=== PATIENT | male | born 1980 | race Caucasian/White ===

== ENCOUNTER → 2022-06-11 | Outpatient (CLI) | payer BC, SELFPAY ==
--- NOTE | 2022-06-11 16:33 | CT_ITS ---
ACR Level 3 findings have been noted. An addendum which confirms receipt of the report will follow. INDICATION: LUQ mass -- Oral and IV contrast EXAMINATION: CT Abdomen And Pelvis W/ Contrast Injection TECHNIQUE: Helically acquired images were obtained of the abdomen and pelvis after IV contrast. A radiation dose optimization technique was used for this scan. IV Contrast dosage and agent: Oral and amp; IV Readi-CAT and amp; 100mL Isovue-370 Oral contrast: None. COMPARISON: None. FINDINGS: Visualized lung bases: Unremarkable Liver: Unremarkable Gallbladder: Unremarkable Spleen: Unremarkable Pancreas: Unremarkable Adrenal Glands: 1.8 cm intermediate density nodule in the left adrenal gland measures 76 Hounsfield units on portal venous phase. Kidneys: There is a large well-circumscribed enhancing mass in the left lower renal pole with a nonenhancing low-attenuation central stellate scar. It measures approximately 11.4 x 10.9 x 11 cm. No gross invasion of the left renal vein or perirenal fat. No lymphadenopathy. Vasculature: Unremarkable GI Tract: Unremarkable Lymphadenopathy: None Peritoneum: No ascites. Bladder: Unremarkable Reproductive organs: Unremarkable Bones/Soft tissues: No suspicious osseous or soft tissue lesions CT/Abdomen/Pelvis WITH Contrast IMPRESSION: Large 11 cm well-demarcated mass in the left lower renal pole with a central hypoattenuating scar and no gross invasion of vasculature, fat or lymph nodes. 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 However, cannot rule out renal cell carcinoma as it can have oncocytic elements. 1.8 cm intermediate density nodule in the left adrenal gland is indeterminate. Recommend follow-up noncontrast CT abdomen to assess for enhancement. Electronically Signed: Garrett Reyna MD at 17:38 EST ,
== END | disposition home or self-care (01) ==
LOC: CT 16:32
PROVIDERS: PCP Nurse Practitioner Family; Referring Provider Surgery; Visit Provider Surgery
DX: R19.02 Left upper quadrant abdominal swelling, mass and lump (principal)
CPT/HCPCS: 74177; Q9967